=== PATIENT | female | born 1960 | race American Indian/Alaskan Native ===

== ENCOUNTER 2022-03-14 08:03 | Day surgery (SDC) | payer BC, OTHER ==
[~2022-03-14] VITALS: Ht 175.3 cm; Wt 141.9 kg
[~2022-03-14 08:03] MED LIST: LASIX20 M2 PO; LEVO-T50 MC1 PO
--- NOTE | 2022-03-14 09:23 | NUR ---
History, Chart, Medications and Allergies reviewed before start of procedure. Patient states colon prep results clear. Patient States Post-Procedure ride home has been arranged.
--- NOTE | 2022-03-14 09:38 | NUR ---
03/14/22 0938 hTu Aguirre MONITOR INTACT WITH CONTINUOUS PULSE OXIMETRY AND INTERMITTENT BP.
--- NOTE | 2022-03-14 10:26 | NUR ---
1015: PT NOTED TO HAVE A POSSIBLE SUPERFICIAL VT IN LEFT LOWER CALF (OUTSIDE), DR. CATALAN EVALUATED. PT STATES SHE HAS HAD THIS IN THE SAME LEG IN THE PASET AND WAS TREATED WITH HEAT AND ASA. PT WILL F/U LATER TODAY WITH PCP. DR. ARREAGA ALSO NOTIFIED.
--- NOTE | 2022-03-14 10:41 | NUR ---
Patient up to Ambulate independently. Gait steady. Discharge instructions reviewed with patient. Patient verbalizes understanding. Copy given to patient to take home. Discharged via wheelchair to private car for ride home W/. DENIES PAIN OR NAUSEA. CONTINUES TO DRINK SIPS OF COFFEE
== END 2022-03-14 23:48 | disposition home or self-care (01) ==
LOC: ORSCMMR 08:03 → ORD 09:30 → ORSCMMR 23:48
PROVIDERS: Internal Medicine Gastroenterology
PROC: 0DBM8ZX Excision of Descending Colon, Via Natural or Artificial Opening Endoscopic, Diagnostic (ICD-10-PCS; principal; 2022-03-14 09:30)
PROC: 0DBN8ZX Excision of Sigmoid Colon, Via Natural or Artificial Opening Endoscopic, Diagnostic (ICD-10-PCS; principal; 2022-03-14 09:30)
DX: Z12.11 Encounter for screening for malignant neoplasm of colon (principal); D12.5 Benign neoplasm of sigmoid colon; D12.4 Benign neoplasm of descending colon; K57.30 Diverticulosis of large intestine without perforation or abscess without bleeding; I48.0 Paroxysmal atrial fibrillation; E03.9 Hypothyroidism, unspecified; K21.9 Gastro-esophageal reflux disease without esophagitis; Z87.891 Personal history of nicotine dependence; E66.01 Morbid (severe) obesity due to excess calories; Z68.42 Body mass index [BMI] 45.0-49.9, adult; Z79.899 Other long term (current) drug therapy
CPT/HCPCS: 88305; J2704; J7120

== ENCOUNTER 2023-03-13 05:24 | Inpatient (IN) | payer BC, OTHER ==
[~2023-03-13] VITALS: Ht 175.3 cm; Wt 131.5 kg
[2023-03-13 08:00] LABS: BASOPHILS ABSOLUTE AUTO 0.02 K/mm3 (0.00-0.23); BASOPHILS PERCENT AUTO 0 % (0-2); EOSINOPHILS ABSOLUTE AUTO 0.07 K/mm3 (0.00-0.68); EOSINOPHILS PERCENT AUTO 1 % (0-6); Hematocrit 38.1 % (33.0-51.0); Hemoglobin 12.4 g/dL (11.5-16.0); IMMATURE GRAN ABSOLUTE AUTO 0.01 K/mm3 (0.00-0.10); IMMATURE GRAN PERCENT AUTO 0 % (0-1); LYMPHOCYTES ABSOLUTE AUTO 1.84 K/mm3 (0.84-5.20); LYMPHOCYTES PERCENT AUTO 28 % (21-46); MONOCYTES ABSOLUTE AUTO 0.46 K/mm3 (0.16-1.47); MONOCYTES PERCENT AUTO 7 % (4-13); Mean Corpuscular HGB 28.5 pg (26.0-34.0); Mean Corpuscular HGB Conc 32.5 g/dL (31.5-36.5); Mean Corpuscular Volume 88 fL (80-100); Mean Platelet Volume 11.1 fL (9.1-12.4); NEUTROPHILS ABSOLUTE AUTO 4.27 K/mm3 (1.96-9.15); NEUTROPHILS PERCENT AUTO 64 % (41-73); Platelet Count 213 K/mm3 (150-400); RDW Coefficient Variation 14.1 % (11.7-14.2); RDW Standard Deviation 45.1 fL (35.1-46.3); Red Blood Cell Count 4.35 M/mm3 (3.80-5.20); White Blood Cell Count 6.67 K/mm3 (4.00-11.30)
[2023-03-13 08:12] LABS: International Normalized Ratio 1.03; Prothrombin Time Results 10.8 Sec (9.7-11.5)
[2023-03-13 10:17] LABS: Albumin, Blood 3.3 g/dL (3.4-5.0); Albumin/Globulin Ratio 0.9 (0.8-1.8); Bilirubin, Total 0.4 mg/dL (0.1-1.0); Bun/Creatinine Ratio 13.3 (12.0-20.0); Calcium, Blood 9.1 mg/dL (8.5-10.1); Creatinine, Blood 1.05 mg/dL (0.40-1.00); Globulin, Blood 3.8 g/dL (2.2-4.0); Potassium, Blood 4.2 mmol/L (3.5-5.5); Total Protein, Blood 7.1 g/dL (6.4-8.2)
[2023-03-13 10:42] VITALS: BP 150/91
[2023-03-13] MEDS ORDERED: TOPI25 PO ×2 (10:43)
[2023-03-13] MEDS ORDERED: ERGO400 PO ×2 (10:44)
[2023-03-13 15:16] VITALS: BP 136/94
--- NOTE | 2023-03-13 16:29 | NUR ---
SHIFT SUMMARY PATIENT BROUGHT UP TO HER ROOM FROM ER VIA GURNEY, ABLE TO TRANSFER TO HER BED INDEPENDENTLY, A/OX4, IV HEPARIN INFUSING AT TIME OF ARRIVAL WITH ALMOST A FULL BAG HANGING ON THE IV POLE. ADMISSION COMPLETE. NO ACUTE EVENTS THIS SHIFT, CALL LIGHT IN REACH
--- NOTE | 2023-03-13 19:20 | NUR ---
NURSE NOTE AWAKE. HEPARIN DRIP INFUSING AT 31.3 ML/HR. DENIES LOSS OF FEELING. VOICED SOME SOB WHEN AMBULATING. DENIES STRESS AT THIS TIME. RECEIVED FIRE IGNITION TEACHING RE NO SMOKING WHILE ON O2 AND NOT TO SMOKE IN THE HOSPITAL. CALL LIGHT IN REACH. SIGNIFICANT OTHER AT BEDSIDE.
[2023-03-13 20:22] VITALS: BP 138/84
[2023-03-14 02:20] VITALS: BP 155/88
[2023-03-14 04:14] LABS: Hematocrit 35.4 % (33.0-51.0); Hemoglobin 11.8 g/dL (11.5-16.0); Mean Corpuscular HGB 28.4 pg (26.0-34.0); Mean Corpuscular HGB Conc 33.3 g/dL (31.5-36.5); Mean Corpuscular Volume 85 fL (80-100); Mean Platelet Volume 11.3 fL (9.1-12.4); Platelet Count 212 K/mm3 (150-400); RDW Coefficient Variation 14.3 % (11.7-14.2); RDW Standard Deviation 44.2 fL (35.1-46.3); Red Blood Cell Count 4.15 M/mm3 (3.80-5.20)
--- NOTE | 2023-03-14 04:17 | NUR ---
ORACLE APPLICATIONS ANALYST SUMMARY BP SLIGHTLY ELEVATED OTHERWISE VSS. HEPARIN DRIP CONTINUES PER MD ORDERS FOR PE AND LEG DVT'S. VOICED DISCOMFORT OF RIGHT BACK, ROXICODONE 5 MG PO ADMINISTERED, MED EFFECTIVE HAS BEEN RESTING QUIETLY WITH FEW INTERRUPTIONS SINCE. CALL LIGHT IN REACH. WILL CONTINUE TO MONITOR.
[2023-03-14 04:45] LABS: Albumin/Globulin Ratio 0.9 (0.8-1.8); Bilirubin, Total 0.4 mg/dL (0.1-1.0); Bun/Creatinine Ratio 14.2 (12.0-20.0); Calcium, Blood 8.3 mg/dL (8.5-10.1); Creatinine, Blood 0.71 mg/dL (0.40-1.00); Globulin, Blood 3.4 g/dL (2.2-4.0); Magnesium, Blood 2.1 mg/dL (1.6-2.4); Total Protein, Blood 6.4 g/dL (6.4-8.2)
--- NOTE | 2023-03-14 07:17 | NUR ---
ASSUMED CARE: PT RESTING IN BED AT THIS TIME. ON RA, TELE IN PLACE, HR 100, NSR. HEPARIN GTT RUNNING AND CONFIRMED WITH ORDERS. NO ACUTE NEEDS OR CONCERNS AT THIS TIME.
[2023-03-14 07:29] VITALS: BP 120/90
--- NOTE | 2023-03-14 08:25 | NUR ---
PT'S CALLED STAFF TO BEDSIDE DUE TO INCREASED BACK PAIN. PT WAS STANDING AT BEDSIDE, HOLDING RIGHT RIBS. STATED IT "FELT DIFFERENT" AND SHE WAS HAVING DIFFICULTY CATCHING HER BREATH. SATTING 96% ON RA. CALL TO TELE WHO STATED PT'S HR INCREASED INTO 120S WITH MORE FREQUENT PVCS. ATTEMPTED EKG BUT PT WAS UNABLE TO LAY FLAT. CALLED SANDING MACHINE OPERATOR TO BEDSIDE TO STAY WITH PT SO THIS RN COULD CALL DR LIU. SPOKE WITH DR LIU WHO STATED SHE WOULD COME TO BEDSIDE IN A FEW MINUTES. EKG WAS EVENTUALLY OBTAINED IN A SITTING POSITION. PT STATES PAIN IS RESOLVING ON IT'S OWN BUT STILL HAVING DIFFICULTY TAKING A DEEP BREATH.
--- NOTE | 2023-03-14 11:19 | NUR ---
IGNITION RISK EVALUATED BY HAND SIGN WRITER. NO EVIDENCE OF CIGARRETTES, LIGHTERS OR MATCHES AT BEDSIDE.
[2023-03-14 15:04] VITALS: BP 116/82
--- NOTE | 2023-03-14 18:13 | NUR ---
SHIFT SUMMARY: PT RESTING IN BED BUT INDEPENDENT IN ROOM. PT'S HAS BEEN AT BEDSIDE T/O DAY. MEDICATED X2 FOR PAIN WITH TYLENOL AND FLEXERIL. PT STATES FLEXIRIL HAS BEEN REALLY HELPFUL FOR SPASMS SHE EXPERIENCED THIS AM. HEPARIN GTT CONTINUES. PT ON 2L FOR COMFORT. NO ACUTE NEEDS OR CONCERNS AT THIS TIME.
[2023-03-14 19:45] VITALS: BP 127/89
--- NOTE | 2023-03-14 22:55 | NUR ---
NURSE NOTE PT RECEIVED FIRE IGNITION - NO SMOKING ON OXYGEN, NO SMOKING IN HOSP EARLIER. CALL LIGHT IN REACH
[2023-03-15 02:56] VITALS: BP 150/106
--- NOTE | 2023-03-15 03:07 | NUR ---
VEHICLE SAFETY INSPECTOR SUMMARY BP TRENDING UPWARD APPARENTLY DUE TO PAIN, OTHERWISE VSS. ANALGESICS ADMINISTERD - SEE MAR FOR DETAILS. O2 SATS IN THE 90'S. LUNG SOUNDS LESS DIMINISHED COMPARED TO 24 HR PREVIOUS PER AUSCULTATION. HEPARIN DRIP CONTINUES. VOIDING QS. RECEIVED BACLOFEN AND ANALGESICS, MEDS EFFECTIVE. ANXIETY DECREASED. HAS BEEN RESTING QUIETLY WITH OCCASIONAL INTERRUPTIONS. CALL LIGHT IN REACH. WILL CONTINUE TO MONITOR.
[2023-03-15 07:34] VITALS: BP 138/89
[2023-03-15 15:37] VITALS: BP 148/84
[2023-03-15 19:52] VITALS: BP 120/82
--- NOTE | 2023-03-16 03:01 | NUR ---
PATIENT SLEPT WELL OVERNIGHT AFTER RECEIVING 5MG FLEXARIL AND TYLENOL FOR 5/10 CHRONIC LOWER BACK PAIN. HEPARIN GTT CONTINUES AT 17 UNITS/KG/HOUR OR 31.1ML PER HOUR. SPOUSE VERY INVOLVED (SOMEWHAT ANXIOUS) ABOUT HER TX, AND WOULD LIKE TO BE INVOLVED IN ANY PATIENT EDUCATION OFFERED. ANGIE STATES SHE IS FEELING MUCH BETTER AND NO LONGER SOB AT REST. WILL CONTINUE CLOSE MONITORING
[2023-03-16 04:40] VITALS: BP 134/70
[2023-03-16 07:30] VITALS: BP 128/82
[2023-03-16 08:13] LABS: BASOPHILS ABSOLUTE AUTO 0.02 K/mm3 (0.00-0.23); BASOPHILS PERCENT AUTO 0 % (0-2); EOSINOPHILS ABSOLUTE AUTO 0.18 K/mm3 (0.00-0.68); EOSINOPHILS PERCENT AUTO 3 % (0-6); Hematocrit 35.5 % (33.0-51.0); Hemoglobin 11.3 g/dL (11.5-16.0); IMMATURE GRAN ABSOLUTE AUTO 0.01 K/mm3 (0.00-0.10); IMMATURE GRAN PERCENT AUTO 0 % (0-1); LYMPHOCYTES ABSOLUTE AUTO 1.68 K/mm3 (0.84-5.20); LYMPHOCYTES PERCENT AUTO 30 % (21-46); MONOCYTES ABSOLUTE AUTO 0.49 K/mm3 (0.16-1.47); MONOCYTES PERCENT AUTO 9 % (4-13); Mean Corpuscular HGB 27.9 pg (26.0-34.0); Mean Corpuscular HGB Conc 31.8 g/dL (31.5-36.5); Mean Corpuscular Volume 88 fL (80-100); Mean Platelet Volume 11.3 fL (9.1-12.4); NEUTROPHILS ABSOLUTE AUTO 3.21 K/mm3 (1.96-9.15); NEUTROPHILS PERCENT AUTO 57 % (41-73); Platelet Count 204 K/mm3 (150-400); Red Blood Cell Count 4.05 M/mm3 (3.80-5.20); White Blood Cell Count 5.59 K/mm3 (4.00-11.30)
[2023-03-16 08:37] LABS: Calcium, Blood 8.9 mg/dL (8.5-10.1); Creatinine, Blood 0.9 mg/dL (0.40-1.00); Potassium, Blood 4.3 mmol/L (3.5-5.5)
--- NOTE | 2023-03-16 16:49 | NUR ---
SHIFT SUMMARY PT RESTING QUIETLY AT START OF SHIFT. UP INDEPENDENTLY IN RM AND TO BTHRM. PT REMAINS ON HEPARIN DRIP, PER PHARMACY. RATE UNCHANGED TO PRESENT THIS SHIFT. PT'S HERE THIS AM AND REMAINS AT BS. DR LIU IN TO SEE PT A COUPLE OF TIMES TODAY. NEW ORDERS PLACED. PT UP WITH THERAPY, ABLE TO AMBULATE IN RM AND LATER IN HALLS WITH RT FOR HOME O2 EVAL. PT IMPROVING WITH POSSIBLE D/C TOMORROW. DENIES NEEDS AT THIS TIME. CALL LT IN REACH. IGNITION RISK DISCUSSED WITH PT WHILE ON O2. DENIES SMOKING; VERBALIZED UNDERSTANDING.
[2023-03-16 20:03] VITALS: BP 140/77
[2023-03-17 02:30] VITALS: BP 126/75
[2023-03-17 05:18] LABS: Hematocrit 36.2 % (33.0-51.0); Hemoglobin 11.7 g/dL (11.5-16.0); Mean Platelet Volume 11.8 fL (9.1-12.4); Platelet Count 234 K/mm3 (150-400)
--- NOTE | 2023-03-17 06:37 | NUR ---
SHIFT SUMMARY PT A&OX4 AND PLEASANT. PT C/O SEVERE BACK PAIN AT START OF SHIFT. MEDICATED PER EMAR T/O NIGHT. PT'S PAIN SEEMED TO BE BETTER MANAGED TOWARED END OF SHIFT. PT WAS ABLE TO GET A COUPLE HOURS OF SLEEP T/O NIGHT. UP TO BATHROOM WITH ASSIST. O2 SATURATION WAS DROPPING WITH PAIN D/T SHALLOW BREATHS SO 2L OF OXYGEN PLACED. MANTAINING O2 SAT IN THE MID 90'S HEPARIN CONTINUES TO RUN WITH NO RATE CHANGE. DVT IN RIGHT LEG FELT COOL TO TOUCH AND PER PT, REDNESS HAS DECREASED. VSS. BED IN LOWEST POSITION AND CALL LIGHT IN REACH.
[2023-03-17 07:52] VITALS: BP 149/96
[2023-03-17 08:29] VITALS: BP 145/77
[2023-03-17] MEDS ORDERED: Acetaminophen650 M1 PO ×2 (11:23)
[2023-03-17] MEDS ORDERED: CYCL10 PO ×2 (11:24)
[2023-03-17] MEDS ORDERED: DOCU100 PO ×2 (11:25)
[2023-03-17] MEDS ORDERED: FAMO20 PO ×2 (11:26)
[2023-03-17] MEDS ORDERED: OXYC5 PO ×2 (11:27)
[2023-03-17] MEDS ORDERED: XARELTO20 MG PO ×2 (11:28)
[2023-03-17] MEDS ORDERED: SENNA LAXATIVE8.6 MG PO ×2 (11:29)
--- NOTE | 2023-03-17 13:39 | NUR ---
PT AWAKE DURING SHIFT REPORT THIS AM. A&O, INDEPENDENT IN AND TO BTHRM. HEPARIN DRIP REMAINED UNCHANGED THRU THE NIGHT. DR LIU IN TO SEE PT AND DISCUSS PLAN OF CARE. D/C ORDERS LATER PLACED. XARELTO ORDERED AND GIVEN PER EMAR AND THEN HEPARIIN DRIP STOPPED PER D/C ORDERS. MEDS FAXED TO [facility] PER PT REQUEST. D/C MEDS AND INSTRUCTIONS REVIEWED WITH PT; VERBALIZED UNDERSTANDING. PT ASSISTED OUT TO FAMILY CAR VIA W/C. TAKING ALL BELONGINGS.
[2023-03-17] MEDS ORDERED: XARELTO15 MG PO (23:36)
== END 2023-03-17 12:01 | disposition home or self-care (01) | DRG 299 ==
LOC: ER 05:24 → MEDS 09:24
PROVIDERS: Emergency Medicine; Internal Medicine; ADMIT Internal Medicine
DX: I82.411 Acute embolism and thrombosis of right femoral vein (principal); I26.99 Other pulmonary embolism without acute cor pulmonale; Z68.41 Body mass index [BMI] 40.0-44.9, adult; I82.431 Acute embolism and thrombosis of right popliteal vein; I82.811 Embolism and thrombosis of superficial veins of right lower extremity; M54.9 Dorsalgia, unspecified; E03.9 Hypothyroidism, unspecified; G43.909 Migraine, unspecified, not intractable, without status migrainosus; I48.0 Paroxysmal atrial fibrillation; E66.01 Morbid (severe) obesity due to excess calories; Z88.0 Allergy status to penicillin; Z88.5 Allergy status to narcotic agent; Z88.1 Allergy status to other antibiotic agents; Z79.01 Long term (current) use of anticoagulants; Z79.899 Other long term (current) drug therapy; Z86.79 Personal history of other diseases of the circulatory system; Z96.653 Presence of artificial knee joint, bilateral; Z98.890 Other specified postprocedural states; Z90.710 Acquired absence of both cervix and uterus; Z90.49 Acquired absence of other specified parts of digestive tract; Z87.891 Personal history of nicotine dependence
CPT/HCPCS: 36415; 71260; 80048; 80053; 83735; 83880; 84443; 84484; 85014; 85018; 85025; 85027; 85049; 85520; 85610; 85730; 93005; 93010; 93971; 94761; 94762; 96365-59; 97110; 97161; 97530; 99285-25; A9270; C8929; J1644; Q9957; Q9967

== ENCOUNTER 2023-03-17 22:43 | Emergency (ER) | payer BC, OTHER ==
[~2023-03-17] VITALS: Ht 175.3 cm; Wt 131.5 kg
[~2023-03-17 22:43] MED LIST changes: +Acetaminophen650 M1 PO; +CYCL10 PO; +DOCU100 PO; +ERGO400 PO; +FAMO20 PO; +OXYC5 PO; +SENNA LAXATIVE8.6 MG PO; +TOPI25 PO; +XARELTO20 MG PO
[2023-03-17 23:06] VITALS: BP 170/86
[2023-03-17] MEDS ORDERED: XARELTO15 MG PO (23:36)
== END 2023-03-17 23:49 | disposition home or self-care (01) ==
LOC: ER 22:43
DX: Z76.0 Encounter for issue of repeat prescription (principal); Z88.0 Allergy status to penicillin; Z88.1 Allergy status to other antibiotic agents; Z88.5 Allergy status to narcotic agent; Z79.890 Hormone replacement therapy; Z79.01 Long term (current) use of anticoagulants; Z79.899 Other long term (current) drug therapy; I48.91 Unspecified atrial fibrillation; Z86.711 Personal history of pulmonary embolism
CPT/HCPCS: 99281; A9270